=== PATIENT | male | born 2000 | race Caucasian/White ===

== ENCOUNTER 2020-12-24 15:29 | Emergency (ER) | payer OTHER, BC ==
[2020-12-24 15:41] VITALS: RESP 18
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
[2020-12-24 17:38] VITALS: BP 121/69; PULSE 71; TEMP 98
== END 2020-12-24 17:35 | disposition home or self-care (01) ==
LOC: EC 15:29
DX: S06.0X9A Concussion with loss of consciousness of unspecified duration, initial encounter (principal); J45.909 Unspecified asthma, uncomplicated; Z79.51 Long term (current) use of inhaled steroids; V89.2XXA Person injured in unspecified motor-vehicle accident, traffic, initial encounter; Y92.410 Unspecified street and highway as the place of occurrence of the external cause
CPT/HCPCS: 70450; 72125; 99284